=== PATIENT | female | born 1950 | race Caucasian/White ===

== ENCOUNTER 2022-05-12 09:25 | Outpatient (CLI) | payer MEDICARE, BC, SELFPAY ==
--- NOTE | 2022-05-12 11:09 | W.ANESCHARGE ---
Anesthesia Charges Start Date/Time Anesthesia Start Date: 05/12/22 Anesthesia Start Time: 10:30 Stop Date/Time Anesthesia Stop Date: 05/12/22 Anesthesia Stop Time: 11:05 Summary Emergency: No Extremes of Age: Over 71-CPT [id number]
== END 2022-05-12 09:26 | disposition home or self-care (01) ==
LOC: OP CLINIC 09:26
PROVIDERS: PCP Family Medicine; Visit Provider Surgery
DX: Z12.11 Encounter for screening for malignant neoplasm of colon (principal); Q43.8 Other specified congenital malformations of intestine; Z86.010 Personal history of colon polyps
CPT/HCPCS: 00811; 00812; 45378; 99100; J2704